=== PATIENT | male | born 1930 | race Caucasian/White ===

== ENCOUNTER 2018-08-24 11:19 | Emergency (ER) | payer OTHER ==
[~2018-08-24] VITALS: Ht 182.9 cm; Wt 77.7 kg
[2018-08-24 11:38] VITALS: Ht 182.9 cm; Wt 77.7 kg
[2018-08-24] MEDS ORDERED: PAXIL20 MG PO (11:39)
[2018-08-24 11:58] LABS: BASOPHILS 0.3 % (0-2); EOSINOPHILS 1.5 % (0-7); HEMATOCRIT 44.9 % (42.0-54.0); HEMOGLOBIN 15.5 g/dL (13.5-17.5); IMMATURE GRANULOCYTES 0.3 % (0-5); LYMPHOCYTES 11.9 % (15-50); MCH 30.6 pg (26.0-34.0); MCHC 34.5 g/dL (31.0-37.0); MCV 88.7 fL (80.0-100.0); MEAN PLATELET VOLUME 10.3 fL (7.4-10.4); MONOCYTES 10.5 % (2-11); NEUTROPHILS 75.5 % (40-80); PLATELET COUNT 211 10x3/uL (130-400); RBC 5.06 10x6/uL (4.20-6.10); RDW 13.2 % (11.5-14.5); WBC 14.8 10x3/uL (4.8-10.8)
[2018-08-24 12:10] LABS: ALBUMIN 3.7 g/dL (3.4-5.0); ALKALINE PHOSPHATASE 63 U/L (46-116); ALT (SGPT) 21 U/L (10-68); BILIRUBIN - TOTAL 0.66 mg/dL (0.2-1.3); CALC OSMOLALITY 280 mosm/kg (275-300); CALCIUM 8.5 mg/dL (8.5-10.1); CARBON DIOXIDE 29.6 mmol/L (21.0-32.0); CHLORIDE - SERUM 105 mmol/L (98-107); GLUCOSE 93 mg/dL (74-106); POTASSIUM - SERUM 4.5 mmol/L (3.5-5.1); PROTEIN - SERUM 6.7 g/dL (6.4-8.2); SODIUM 141 mmol/L (136-145); UREA NITROGEN 12 mg/dL (7-18); eGFR NON AFRICAN AMERICAN 75 mL/min (90-120)
[2018-08-24 12:53] LABS: APPEARANCE CLEAR (CLEAR); COLOR YELLOW (YELLOW)
[2018-08-24 12:54] LABS: BILIRUBIN NEGATIVE (NEGATIVE); GLUCOSE 100 mg/dL (NEGATIVE); KETONE NEGATIVE (NEGATIVE); NITRITE NEGATIVE (NEGATIVE); PROTEIN 1+ mg/dL (NEGATIVE); UROBILINOGEN NORMAL (NORMAL)
[2018-08-24 12:56] LABS: BACTERIA FEW /hpf (NONE SEEN); EPITHELIAL CELLS RARE /hpf (0-5); RED CELLS - URINE 0-5 /hpf (0-5); WHITE CELLS - URINE 0-5 /hpf (0-5)
[2018-08-24] MEDS ORDERED: AUGMENTIN 875-11 TAB PO (14:51)
[2018-08-24 15:03] VITALS: BP 123/80
== END 2018-08-24 15:04 | disposition home or self-care (01) ==
LOC: D.ER 11:19
PROVIDERS: Family Medicine
DX: J01.90 Acute sinusitis, unspecified (principal); R19.7 Diarrhea, unspecified; J02.9 Acute pharyngitis, unspecified; R09.89 Other specified symptoms and signs involving the circulatory and respiratory systems

== ENCOUNTER 2018-08-26 12:24 | Emergency (ER) | payer OTHER ==
[~2018-08-26] VITALS: Ht 182.9 cm; Wt 77.3 kg
[~2018-08-26 12:24] MED LIST: AUGMENTIN 875-11 TAB PO; PAXIL20 MG PO
[2018-08-26 12:28] VITALS: Ht 182.9 cm; Wt 77.3 kg
[2018-08-26 13:54] LABS: BASOPHILS 0.2 % (0-2); HEMATOCRIT 45.6 % (42.0-54.0); HEMOGLOBIN 15.5 g/dL (13.5-17.5); IMMATURE GRANULOCYTES 0.3 % (0-5); LYMPHOCYTES 12.1 % (15-50); MCH 30.5 pg (26.0-34.0); MCV 89.8 fL (80.0-100.0); MEAN PLATELET VOLUME 10.9 fL (7.4-10.4); MONOCYTES 12.1 % (2-11); NEUTROPHILS 71.3 % (40-80); PLATELET COUNT 220 10x3/uL (130-400); RBC 5.08 10x6/uL (4.20-6.10); RDW 13.5 % (11.5-14.5); WBC 12.6 10x3/uL (4.8-10.8)
[2018-08-26 14:21] LABS: ALBUMIN 3.4 g/dL (3.4-5.0); ALKALINE PHOSPHATASE 64 U/L (46-116); ALT (SGPT) 18 U/L (10-68); CALC OSMOLALITY 284 mosm/kg (275-300); CALCIUM 8.6 mg/dL (8.5-10.1); CARBON DIOXIDE 27.8 mmol/L (21.0-32.0); CHLORIDE - SERUM 106 mmol/L (98-107); CREATININE - SERUM 0.9 mg/dL (0.6-1.3); GLUCOSE 96 mg/dL (74-106); POTASSIUM - SERUM 3.9 mmol/L (3.5-5.1); PROTEIN - SERUM 6.5 g/dL (6.4-8.2); SODIUM 142 mmol/L (136-145); UREA NITROGEN 19 mg/dL (7-18); eGFR NON AFRICAN AMERICAN 85 mL/min (90-120)
[2018-08-26] MEDS ORDERED: LOMOTIL 2.5-0.1 EAC1 PO (16:15)
[2018-08-26] MEDS ORDERED: FLAGYL500 MG PO (16:15)
[2018-08-26] MEDS ORDERED: CIPRO500 MG PO (16:15)
[2018-08-26 16:26] VITALS: BP 146/83
== END 2018-08-26 16:26 | disposition home or self-care (01) ==
LOC: D.ER 12:24
PROVIDERS: Family Medicine
DX: K52.9 Noninfective gastroenteritis and colitis, unspecified (principal); D72.829 Elevated white blood cell count, unspecified

== ENCOUNTER → 2019-06-15 08:53 | Outpatient (CLI) | payer OTHER ==
[2018-08-26 12:28] VITALS: BMI 23.1
[~2019-06-15 08:53] MED LIST changes: +CIPRO500 MG PO; +FLAGYL500 MG PO; +LOMOTIL 2.5-0.1 EAC1 PO
== END | disposition home or self-care (01) ==
LOC: D.US 08:53
PROVIDERS: ATTEND Thoracic Surgery (Cardiothoracic Vascular Surgery)
DX: I71.4 Abdominal aortic aneurysm, without rupture (principal); I48.91 Unspecified atrial fibrillation

== ENCOUNTER 2020-04-01 17:38 | Inpatient (IN) | payer OTHER ==
[~2020-04-01] VITALS: Ht 182.9 cm; Wt 68.2 kg
[2020-04-01 20:00] VITALS: BP 123/65
[2020-04-02 02:21] VITALS: BP 114/60; Ht 182.9 cm; Wt 68.2 kg
[2020-04-02 08:24] VITALS: BP 112/75
[2020-04-02 12:11] VITALS: BP 101/59
[2020-04-02 17:02] VITALS: BP 116/72
[2020-04-02 21:11] VITALS: BP 105/68
[2020-04-03 00:31] VITALS: BP 109/51
[2020-04-03 04:57] VITALS: BP 86/52
[2020-04-03 08:13] VITALS: BP 97/53
[2020-04-03 12:05] VITALS: BP 154/101
[2020-04-03 12:15] VITALS: BP 110/78
[2020-04-03] MEDS ORDERED: CIPRO500 MG PO (14:37)
--- NOTE | 2020-04-03 15:18 | MORECARE ---
CASE MANAGEMENT DISCHARGE SUMMARY PATIENT: KELLY RIZZO UNIT: [id number] ADM DATE: 04/01/20 AGE: 89 : 32 SEX: M ROOM/BED: D.2132 AUTHOR: ISRAEL OLSON PHYSICIAN: REFERRING PHYSICIAN: RAYMON LOPEZ MD DATE OF SERVICE: 04/03/20 Discharge Plan Patient Name: KELLY RIZZO [facility] [facility] 1930 Planned Disposition: Home Anticipated Discharge Date: Discharge Date: Expected LOS: Initial Reviewer: [email or web address] Initial Review Date: 04/01/2020 Generated: 04/03/20 4:17 pm Patient Name: KELLY RIZZO Page [id number] at 1518 All edits/amendments must be made on the electronic document DICTATION DATE: 04/03/20 1517 LEAN MANUFACTURING SPECIALIST: LOCO 04/03/20 1517 RPT#: [id number] MO DATE: STATUS: ADM IN [facility] [address] [place] [address] END OF REPORT
--- NOTE | 2020-04-03 15:24 | MORECARE ---
CASE MANAGEMENT DISCHARGE SUMMARY PATIENT: KELLY RIZZO UNIT: [id number] ADM DATE: 04/01/20 AGE: 89 : 32 SEX: M ROOM/BED: D.2132 AUTHOR: ISRAEL OLSON PHYSICIAN: REFERRING PHYSICIAN: RAYMON LOPEZ MD DATE OF SERVICE: 04/03/20 Discharge Plan Patient Name: KELLY RIZZO [facility] : 1930 Planned Disposition: Home Anticipated Discharge Date: Discharge Date: Expected LOS: Initial Reviewer: [email or web address] Initial Review Date: 04/01/2020 Generated: 04/03/20 4:24 pm Last DP export: 04/03/20 2:18 pm Patient Name: KELLY RIZZO Page [id number] at 1524 All edits/amendments must be made on the electronic document DICTATION DATE: 04/03/20 1524 MEDICAL OFFICE SPECIALIST: LOCO 04/03/20 1524 RPT#: [id number] DC DATE: STATUS: ADM IN [facility] [address] [place] [address] END OF REPORT
--- NOTE | 2020-04-03 15:37 | MORECARE ---
CASE MANAGEMENT DISCHARGE SUMMARY PATIENT: KELLY RZIZO UNIT: [id number] ADM DATE: 04/01/20 AGE: 89 : 32 SEX: M ROOM/BED: D.2132 AUTHOR: WHITNEYDOC PHYSICIAN: REFERRING PHYSICIAN: RAYMON LOPEZ MD DATE OF SERVICE: 04/03/20 Discharge Plan Patient Name: KELLY RIZZO Facility: [facility]:[place] : 1930 Planned Disposition: Home Anticipated Discharge Date: Discharge Date: Expected LOS: Initial Reviewer: [email or web address] Initial Review Date: 04/01/2020 Generated: 04/03/20 4:37 pm Comments DCP- Discharge Planning Updated by [id number]: Iram Wright on 04/03/20 2:[address] Patient Name: KELLY RIZZO Admission Status: ER Accout number: [id number] Admission Date: 04-01-2020 : 1930 Admission Diagnosis: Attending: RAYMON GAMBLE Current LOS: 2 Anticipated DC Date: Planned Disposition: Home Primary Insurance: [employer] Discharge Planning Comments: CM called patient to complete initial dc planning assessment. CM unable to reach pt by phone so CM called pt caregiver Akila at [phone]. CM verified patient's address, phone number, and emergency contact phone numbers. Patient lives at home and is independent with his ADL's. At discharge patient plans to return home and feels this is a safe discharge. CM discussed availability of home health, rehab services, and medical equipment. Patient healthcare representative states she would like to have home health come out to see him. States he has been very independent, and has had difficulty walking and taking care of himself for the last week while he has been sick. LORAINE verbalized for [facility] home health. CM called [facility] home health at [phone], and faxed referral to [facility] health. Akila denies other known discharge needs at this time. Transportation provider at discharge will be Akila who will states she will peanut picker pt by 8 PM. CM will continue to follow and will assist as needed with dc plans/needs. Stock Letterer: Iarm Wright Last DP export: 9/6/20 2:24 pm Patient Name: KELLY RIZZO Page [id number] at 1537 All edits/amendments must be made on the electronic document DICTATION DATE: 04/03/201536 DEHYDRATOR OPERATOR: LOCO 04/03/201536 RPT#: [id number] DC DATE: STATUS: ADM IN [facility] [address] [place] [address] END OF REPORT
--- NOTE | 2020-04-03 16:24 | MORECARE ---
CASE MANAGEMENT DISCHARGE SUMMARY PATIENT: KELLY RIZZO UNIT: [id number] ADM DATE: 04/01/20 AGE: 89 : 32 SEX: M ROOM/BED: D.2132 AUTHOR: WHITNEY,DOC PHYSICIAN: REFERRING PHYSICIAN: RAYMON LOPEZ MD DATE OF SERVICE: 04/03/20 Discharge Plan Patient Name: KELLY RIZZO Facility: [facility]:[place] : 1930 Planned Disposition: Home Anticipated Discharge Date: Discharge Date: Expected LOS: Initial Reviewer: [id number] Initial Review Date: 04/01/2020 Generated: 04/03/20 5:23 pm Comments DCP- Discharge Planning Updated by [id number]: Iram Wright on 04/03/20 2:[address] Patient Name: KELLY RIZZO Admission Status: ER Accout number: [id number] Admission Date: 04-01-2020 : 1930 Admission Diagnosis: Attending: RAYMON GAMBLE Current LOS: 2 Anticipated DC Date: Planned Disposition: Home Primary Insurance: [employer] Discharge Planning Comments: CM called patient to complete initial dc planning assessment. CM unable to reach pt by phone so CM called pt caregiver Akila at [phone]. CM verified patient's address, phone number, and emergency contact phone numbers. Patient lives at home and is independent with his ADL's. At discharge patient plans to return home and feels this is a safe discharge. CM discussed availability of home health, rehab services, and medical equipment. Patient pet care assistant states she would like to have home health come out to see him. States he has been very independent, and has had difficulty walking and taking care of himself for the last week while he has been sick. LORAINE verbalized for [facility] health. CM called [facility] home health at [phone], and faxed referral to [facility] health. Akila denies other known discharge needs at this time. Transportation provider at discharge will be Akila who will states she will berry picker machine operator pt by 8 PM. CM will continue to follow and will assist as needed with dc plans/needs. Manager Organizational: Iram Wright External Providers External Provider: [facility] Next Contact Date: Service Request Date: Service Type: Resolution: Reviewer: Comments: Coverage Notice Reviewer: [id number] Joey LaurenIram Edds Notice Issued Date-Time: 04/03/2020 15:20 Notice Type: Patient Choice Letter Notice Delivered To: Other Relationship to Patient: Fibre Optic Cable Splicer Name: AKILA Delivery Method: PHONE - Phone Francy Days: Prior Verbal Notification: Yes Recipient Understood Notice: Yes Recipient Signature: Med Rec Note Co-signed by Attending: Coverage Notice Comment: ROSEY Reviewer: [id number] Joey Hughesa Kyle Notice Issued Date-Time: 04/03/2020 15:30 Notice Type: IM Discharge Notice Notice Delivered To: Other Relationship to Patient: Fibre Optic Cable Splicer Name: AKILA Delivery Method: PHONE - Phone Francy Days: Prior Verbal Notification: Yes Recipient Understood Notice: Yes Recipient Signature: Med Rec Note Co-signed by Attending: Coverage Notice Comment: DCIMM DELIVERED BY PNONE Last DP export: 04/03/20 2:37 pm Patient Name: KELLY RIZZO Page [id number] at 1624 All edits/amendments must be made on the electronic document DICTATION DATE: 04/03/20 162 SCREW MACHINE OPERATOR SINGLE SPINDLE: LOCO 04/03/20 1623 RPT#: [id number] DC DATE: STATUS: ADM IN [facility] [address] [place] [address] END OF REPORT
--- NOTE | 2020-04-03 16:30 | MORECARE ---
CASE MANAGEMENT DISCHARGE SUMMARY PATIENT: KELLY RIZZO UNIT: [id number] ADM DATE: 04/01/20 AGE: 89 : 32 SEX: M ROOM/BED: D.2132 AUTHOR: WHITNEYDOC PHYSICIAN: REFERRING PHYSICIAN: RAYMON LOPEZ MD DATE OF SERVICE: 04/03/20 Discharge Plan Patient Name: KELLY RIZZO Facility: [facility]:[place] : 1930 Planned Disposition: Home Anticipated Discharge Date: Discharge Date: Expected LOS: Initial Reviewer: [email or web address] Initial Review Date: 04/01/2020 Generated: 04/03/20 5:30 pm Comments DCP- Discharge Planning Updated by [id number]: Iram Wright on 04/03/20 3:[address] Patient Name: KELLY RIZZO Admission Status: ER Accout number: [id number] Admission Date: 04-01-2020 : 1930 Admission Diagnosis: Attending: RAYMON GAMBLE Current LOS: 2 Anticipated DC Date: Planned Disposition: Home Primary Insurance: [employer] Discharge Planning Comments: CM called patient to complete initial dc planning assessment. CM unable to reach pt by phone so CM called pt caregiver Akila at [phone]. CM verified patient's address, phone number, and emergency contact phone numbers. Patient lives at home and is independent with his ADL's. At discharge patient plans to return home and feels this is a safe discharge. CM discussed availability of home health, rehab services, and medical equipment. Patient care tech states she would like to have home health come out to see him. States he has been very independent, and has had difficulty walking and taking care of himself for the last week while he has been sick. LORAINE verbalized for [facility] home health. JOHN called [facility] home health at [phone], and faxed referral to [facility] health. Akila denies other known discharge needs at this time. Transportation provider at discharge will be Akila who will states she will crop picker pt by 8 PM. CM will continue to follow and will assist as needed with dc plans/needs. DC IMM explained via phone to Akila who verbalized understanding. A copy will be left with pt to review, and a copy left in the cart. Electric Organ Assembler And Checker: Iram Wright Coverage Notice Reviewer: [id number] - Iram Wright Notice Issued Date-Time: 04/03/2020 15:20 Notice Type: Patient Choice Letter Notice Delivered To: Other Relationship to Patient: Telegraph Office Manager Name: AKILA Delivery Method: PHONE - Phone Francy Days: Prior Verbal Notification: Yes Recipient Understood Notice: Yes Recipient Signature: Med Rec Note Co-signed by Attending: Coverage Notice Comment: [facility] Reviewer: [id number] Joey Wright Notice Issued Date-Time: 04/03/2020 15:30 Notice Type: IM Discharge Notice Notice Delivered To: Other Relationship to Patient: Telegraph Office Manager Name: AKILA Delivery Method: PHONE - Phone Francy Days: Prior Verbal Notification: Yes Recipient Understood Notice: Yes Recipient Signature: Med Rec Note Co-signed by Attending: Coverage Notice Comment: DCIMM DELIVERED BY PNONE Last DP export: 04/03/20 3:24 pm Patient Name: KELLY RIZZO Page [id number] at 1630 All edits/amendments must be made on the electronic document DICTATION DATE: 04/03/20 1630 THEATER MANAGER: LOCO 04/03/20 1630 RPT#: [id number] DC DATE: STATUS: ADM IN [facility] [address] [place] [address] END OF REPORT
== END 2020-04-03 18:53 | disposition home or self-care (01) | DRG 177 ==
LOC: D.ER 17:38 → D.M2 21:38
PROVIDERS: ADMIT Family Medicine; ATTEND Family Medicine
DX: U07.1 COVID-19 (principal); J96.01 Acute respiratory failure with hypoxia; N39.0 Urinary tract infection, site not specified; I48.91 Unspecified atrial fibrillation; N40.0 Benign prostatic hyperplasia without lower urinary tract symptoms; G47.00 Insomnia, unspecified; I08.3 Combined rheumatic disorders of mitral, aortic and tricuspid valves